=== PATIENT | female | born 1950 | race Caucasian/White ===

== ENCOUNTER 2017-11-25 12:27 | Emergency (ER) | payer OTHER, MEDICARE ==
--- NOTE | 2017-11-25 13:35 | EDPHY ---
H & P Time Seen by Provider: 11/25/17 12:45 HPI/ROS: Chief complaint. Low back pain HPI. 67-year-old female with 1 week history low back pain. It spasm E and tight. She has some sense of it radiating to the anterior right thigh. It began after lifting weights a week ago. She was seen at a [place] [facility] on and diagnosed with muscle spasm. She has fallen she says secondary to pain but not to leg weakness. No injury. She has no bowel or bladder symptoms. No fever. She has occasional sore back though this seems to be worse than usual. Again no leg weakness or change in sensation. Patient is using Robaxin, ibuprofen, Tylenol for discomfort ROS Constitutional. no fever/chills, no weakness Eyes. no problems with vision ENT. no sore throat, no nasal drainage Cardiovascular. no chest pain Respiratory. no shortness of breath, no cough Abdominal. no abdominal pain, no nausea/vomiting, no diarrhea . no problems urinating MS. Low back pain Skin. no rash Lymph. no swollen glands Neuro. Hurts to walk Past Medical/Surgical History: Acoustic neuroma, bipolar illness Social History: Single, nonsmoker, no alcohol Smoking Status: Never smoked Physical Exam: General Appearance: Alert well-developed female mild distress vital signs are stable Eyes: Pupils equal and round no pallor or injection. ENT, Mouth: Mucous membranes are moist. Respiratory: There are no retractions, lungs are clear to auscultation. Cardiovascular: Regular rate and rhythm. Gastrointestinal: Abdomen is soft and nontender, no masses, bowel sounds normal. Neurological: Awake and alert, sensory and motor exams grossly normal. Straight leg raising is negative to 30 degrees bilaterally. Deep tendon reflexes are symmetrical. Great toe strength is normal. Sensation is normal. Skin: Warm and dry, no rashes. Musculoskeletal: Neck is supple nontender. Diffuse lumbar pain without specific tenderness over the spinous processes. Extremities symmetrical, full range of motion. Psychiatric: Patient is oriented X 3, there is no agitation. Constitutional: Initial Vital Signs Temperature (C) 36.5 C 11/25/17 12:38 Heart Rate 84 11/25/17 12:38 Respiratory Rate 16 11/25/17 12:38 Blood Pressure 130/77 H 11/25/17 12:38 O2 Sat (%) 98 11/25/17 12:38 O2 Delivery Mode Room Air Allergies/Adverse Reactions: IODINE SENSITIVITY Allergy (Uncoded 11/25/17 12:37) Home Medications: Medication Instructions Recorded ARIPiprazole [Abilify 5 mg (*)] 7.5 mg PO DAILY 11/25/17 Lidocaine 5% [Lidoderm 5% Patch 2 ea TD DAILY #30 patch 11/25/17 (*)] Methocarbamol [Robaxin 500 mg (*)] 1,000 mg PO QID 11/25/17 QUEtiapine FUMARATE [Seroquel 25 11/25/17 mg (*)] QUEtiapine FUMARATE [Seroquel 25 25 mg PO DAILY 11/25/17 mg (*)] Venlafaxine HCl [Venlafaxine 75MG 75 mg PO 11/25/17 (*)] lamOTRIGine [Lamotrigine] 100 mg PO 11/25/17 Medical Decision Making Procedures: Lidocaine patch applied to low back ED Course/Re-evaluation: On re-evaluation patient is stable. The patient and I discussed treatment plan including criteria for return importance of follow-up and further evaluation. She expresses understanding and agreement Differential Diagnosis: I think this represents muscular low back pain. I do not think that the patient has a herniated disc without radiation, leg weakness or bowel or bladder symptoms. No evidence for cauda equina syndrome. Departure - Departure Disposition: Home, Routine, Self-Care Clinical Impression: Low back pain Qualifiers: Chronicity: acute Back pain laterality: right Sciatica presence: without sciatica Qualified Code(s): M54.5 - Low back pain Condition: Good Instructions: Low Back Strain (ED) Additional Instructions: Heat to low back. Easy activity. Continue the Robaxin and Tylenol and ibuprofen as recommended. Lidocaine patches and may wear each patch for 12 hr, remove for 12 hr and then reapply. Return for leg weakness, bowel or bladder symptoms. Re-evaluation by Dr. lara in 2-3 days if not improved Referrals: NONE *PRIMARY CARE P,. [Primary Care Provider] - As per Instructions Lucy Najera MD [[facility] [place] Primary Care Provider] - 2-3 days, if not improved Prescriptions: Lidocaine 5% [Lidoderm 5% Patch (*)] 2 ea TD DAILY #30 patch
[2017-11-25] MEDS ORDERED: LIDOCAINE 5% 1 EA PATCH TD ONE (13:37)
[2017-11-25 13:54] VITALS: BP 131/66; PULSE 79; RESP 18; TEMP 98.6; O2SAT 94
[2017-11-25] MEDS ORDERED: PATCH REMOVAL 1 EA PATCH TD SCH (21:00)
== END 2017-11-25 14:02 | disposition home or self-care (01) ==
DX: M54.5 Low back pain (principal)

== ENCOUNTER → 2017-11-28 | Outpatient (CLI) | payer OTHER, MEDICARE | LOC: BMCIMAGING 13:48 | PROVIDERS: ATTEND Internal Medicine | DX: M54.5 Low back pain (principal); M41.9 Scoliosis, unspecified; M51.36 Other intervertebral disc degeneration, lumbar region ==